=== PATIENT | male | born 1980 | race Caucasian/White ===

== ENCOUNTER 2023-07-11 07:10 | Day surgery (SDC) | payer BC ==
[~2023-07-11 07:10] MED LIST: Acetaminophen 1,000 MG in Premix Bag 1 BAG IV SCH
[2023-07-11] MEDS ORDERED: Morphine 2 MG/ML SYRINGE IVPUSH PRN (07:18)
[2023-07-11] MEDS ORDERED: Ondansetron 4 MG/2 ML SDV IVPUSH PRN (07:18)
[2023-07-11] MEDS ORDERED: Naloxone 0.4 MG/ML SDV IVPUSH PRN (07:18)
[2023-07-11] MEDS ORDERED: fentaNYL 50 MCG/ML SDV IVPUSH PRN (07:18)
[2023-07-11] MEDS ORDERED: Metoclopramide 10 MG/2 ML SDV IVPUSH PRN (07:18)
[2023-07-11] MEDS ORDERED: HYDROmorphone 1 MG/ML Syringe IVPUSH PRN (07:18)
[2023-07-11] MEDS ORDERED: Albuterol 0.083% 2.5 MG/3 ML Neb Soln NEB PRN (07:18)
[2023-07-11] MEDS ORDERED: droPERidol 5 MG/2 ML SDV IVPUSH PRN (07:18)
[2023-07-11] MEDS ORDERED: Bupivacaine 0.5% 30 ML SDV ONE (07:23)
[2023-07-11] MEDS ORDERED: propofoL 50 ML ONE (07:40)
[2023-07-11] MEDS ORDERED: Morphine 10 MG/ML SDV ONE (07:42)
[2023-07-11] MEDS ORDERED: fentaNYL 250 MCG/5 ML SDV ONE (07:42)
[2023-07-11] MEDS ORDERED: Rocuronium Bromide 50 MG/5 ML Syringe ONE (07:42)
[2023-07-11] MEDS ORDERED: dexmedeTOMIDine HCl 200 MCG/2 ML SDV ONE (07:43)
[2023-07-11] MEDS: Lactated Ringers 1,000 ML IV SCH (07:44)
[2023-07-11] MEDS: Pregabalin 75 MG Cap PO SCH (07:45)
[2023-07-11] MEDS ORDERED: Ropivacaine 0.5% 5 MG/ML 30 ML SDV ONE ×2 (07:45→07:47)
[2023-07-11] MEDS ORDERED: Famotidine 20 MG/2 ML SDV ONE (07:46)
[2023-07-11] MEDS ORDERED: Desflurane 240 ML Bottle ONE (07:47)
[2023-07-11] MEDS ORDERED: Ondansetron 4 MG/2 ML SDV ONE (07:54)
[2023-07-11] MEDS ORDERED: Dexamethasone 4 MG/ML 5 ML MDV ONE (07:54)
[2023-07-11] MEDS ORDERED: Ketorolac 30 MG/ML SDV ONE (07:54)
[2023-07-11] MEDS ORDERED: ceFAZolin 2 GM in Sodium Chloride 0.9% 50 ML IV ONE (08:12)
[2023-07-11] MEDS ORDERED: Lidocaine 2% 11 ML Jelly Filled Syringe ONE (08:27)
[2023-07-11] MEDS ORDERED: Propofol 200 MG/20 ML SDV ONE (08:48)
[2023-07-11] MEDS ORDERED: ceFAZolin 2 GM Vial ONE (08:49)
[2023-07-11] MEDS ORDERED: Water For Injection, Sterile 20 ML ONE (08:49)
[2023-07-11] MEDS ORDERED: Sugammadex Sodium 200 MG/2 ML VIAL IV ONE (09:08)
[2023-07-11 11:35] VITALS: BP 111/70; PULSE 76
== END 2023-07-11 11:20 | disposition home or self-care (01) ==
LOC: MW.SDS 07:10
PROVIDERS: ATTEND Surgery
DX: K42.0 Umbilical hernia with obstruction, without gangrene (principal); E66.9 Obesity, unspecified; Z68.33 Body mass index [BMI] 33.0-33.9, adult; Z87.891 Personal history of nicotine dependence; Z79.899 Other long term (current) drug therapy
CPT/HCPCS: 49592; 64488; A9270; J0131; J0665; J0690; J1100; J1885; J2270; J2405; J2704; J2795; J3010; J3490; J7120

== ENCOUNTER 2023-12-12 10:48 | Emergency (ER) | payer BC ==
[2023-12-12] MEDS: Aspirin 81 MG Tab.Chew PO STA (10:57)
[2023-12-12] MEDS: Sodium Chloride 0.9% 1,000 ML IV STA (10:57)
[2023-12-12 11:00] LABS: BASOPHILS ABSOLUTE AUTO 0.04 K/uL (0.00-0.20); BASOPHILS PERCENT AUTO 0.3 % (0.0-1.0); EOSINOPHILS ABSOLUTE AUTO 0.03 K/uL (0.00-0.45); EOSINOPHILS PERCENT AUTO 0.2 % (0.0-6.0); HEMATOCRIT 44.2 % (42.0-52.0); HEMOGLOBIN 15.2 g/dL (14.0-18.0); IMMATURE GRAN ABSOLUTE AUTO 0.05 K/uL (0.00-0.05); IMMATURE GRAN PERCENT AUTO 0.4 % (0.0-0.4); LYMPHOCYTES ABSOLUTE AUTO 1.75 K/uL (1.00-4.80); LYMPHOCYTES PERCENT AUTO 14.4 % (24.0-44.0); MEAN CORPUSCULAR HEMOGLOBIN 30.5 pg (28.0-32.0); MEAN CORPUSCULAR HGB CONC 34.4 g/dL (32.0-36.0); MEAN CORPUSCULAR VOLUME 88.6 fL (83.0-99.0); MONOCYTES ABSOLUTE AUTO 0.67 K/uL (0.00-0.80); MONOCYTES PERCENT AUTO 5.5 % (0.0-8.0); NEUTROPHILS ABSOLUTE AUTO 9.61 K/uL (1.80-7.70); NEUTROPHILS PERCENT AUTO 79.2 % (41.0-71.0); PLATELET COUNT,PLT 275 K/uL (150-400); RED BLOOD CELL COUNT 4.99 M/uL (4.52-5.90); WHITE BLOOD CELL COUNT,WBC 12.15 K/uL (3.9-11.3)
[2023-12-12 11:28] LABS: INR 1.1 (0.86-1.11); PTT,PARTIAL THROMBOPLSTIN TIME 31.9 SEC (23.9-30.7)
[2023-12-12 11:53] LABS: A/G RATIO 1.6 (0.9-1.6); ALBUMIN 4.4 g/dL (3.4-5.0); BILIRUBIN TOTAL 0.9 mg/dL (0.2-1.0); CALCIUM 9.3 mg/dL (8.5-10.1); CARBON DIOXIDE,CO2 25.7 mmol/L (21.0-32.0); EST CRCL DRUG DOSING (CG) 102.39 mL/min; POTASSIUM,K 4.1 mmol/L (3.5-5.1); PROTEIN TOTAL,TP 7.2 g/dL (6.4-8.2)
[2023-12-12 12:40] VITALS: BP 124/82; PULSE 71
== END 2023-12-12 12:42 | disposition home or self-care (01) ==
LOC: MW.ED 10:48
DX: R07.9 Chest pain, unspecified (principal); E66.9 Obesity, unspecified; Z79.899 Other long term (current) drug therapy; Z75.8 Other problems related to medical facilities and other health care; Z68.33 Body mass index [BMI] 33.0-33.9, adult
CPT/HCPCS: 36415; 71046; 80053; 83690; 84484; 85025; 85610; 85730; 93005; 96360; 99285; A9270; J7030; 93010